=== PATIENT | female | born 1950 | race Caucasian/White ===

== ENCOUNTER 2019-11-12 14:20 | Day surgery (SDC) | payer MEDICARE, MEDICAID ==
[~2019-11-12] VITALS: Ht 154.9 cm; Wt 63.6 kg
[2019-11-12] VITALS (9 sets, daily range): BP systolic 109–137; BP diastolic 55–74
[2019-11-12] MEDS ORDERED: glucagon, human recombinant 1mg kit ONE (14:24)
[2019-11-12] MEDS ORDERED: levoFLOXACIN-Levaquin 500mg/D5 100 ML IV ONE (14:24)
[2019-11-12] MEDS ORDERED: LIDOcaine Viscous 15ml cup ONE (14:24)
[2019-11-12] MEDS ORDERED: fentaNYL/PF 50MCG/1 ML 2ML syringe ONE (14:24)
[2019-11-12] MEDS ORDERED: iohexol 300 MG/1 ML 50ml polymer ONE (14:24)
[2019-11-12] MEDS ORDERED: MIDAZolam 5mg/5ml vial ONE (14:24)
[2019-11-12] MEDS ORDERED: ANTI DEPRESSANT PO (16:33)
== END 2019-11-12 17:15 | disposition home or self-care (01) ==
LOC: GI LAB 14:20
PROVIDERS: ATTEND Internal Medicine Gastroenterology
DX: K91.89 Other postprocedural complications and disorders of digestive system (principal); K83.1 Obstruction of bile duct; Y83.8 Other surgical procedures as the cause of abnormal reaction of the patient, or of later complication, without mention of misadventure at the time of the procedure; Y92.89 Other specified places as the place of occurrence of the external cause
CPT/HCPCS: 43276; 99153; C1769; C2617; G0500; J1610; J1956; J2250; J3010; J7040; Q9967; 99152; A4620